=== PATIENT | female | born 1945 | race Caucasian/White ===

== ENCOUNTER → 2016-12-07 | Outpatient (CLI) | payer OTHER | LOC: KOH-I 14:50 | DX: M79.651 Pain in right thigh (principal); R22.41 Localized swelling, mass and lump, right lower limb | CPT/HCPCS: 76881 ==

== ENCOUNTER → 2017-02-20 | Outpatient (CLI) | payer OTHER | LOC: KOH-I 02-17 13:00 | DX: R51 Headache (principal); R25.1 Tremor, unspecified; Z80.8 Family history of malignant neoplasm of other organs or systems; Z82.3 Family history of stroke; Z82.49 Family history of ischemic heart disease and other diseases of the circulatory system | CPT/HCPCS: 70450 ==

== ENCOUNTER → 2021-04-26 | Outpatient (CLI) | payer MEDICARE, OTHER | LOC: KOH-I 13:29 | DX: M79.671 Pain in right foot (principal) | CPT/HCPCS: 73630 ==

== ENCOUNTER → 2021-05-31 | Outpatient (CLI) | payer MEDICARE, OTHER | LOC: KOH-I 14:53 | DX: M79.671 Pain in right foot (principal); M19.071 Primary osteoarthritis, right ankle and foot | CPT/HCPCS: 73630 ==

== ENCOUNTER → 2021-07-12 | Outpatient (CLI) | payer MEDICARE | LOC: KOH-I 15:07 | DX: M25.571 Pain in right ankle and joints of right foot (principal); M19.071 Primary osteoarthritis, right ankle and foot | CPT/HCPCS: 73630 ==

== ENCOUNTER → 2021-07-27 | Outpatient (CLI) | payer MEDICARE, OTHER | LOC: KOH-I 10:52 | DX: M84.374A Stress fracture, right foot, initial encounter for fracture (principal); M81.0 Age-related osteoporosis without current pathological fracture | CPT/HCPCS: 73718 ==

== ENCOUNTER → 2021-08-12 | Outpatient (CLI) | payer MEDICARE, OTHER | LOC: KOH-I 09:52 | DX: R06.02 Shortness of breath (principal); R07.9 Chest pain, unspecified; Z90.2 Acquired absence of lung [part of] | CPT/HCPCS: 73630 ==

== ENCOUNTER → 2022-04-18 | Outpatient (CLI) | payer MEDICARE, OTHER | LOC: KOH-I 15:13 | DX: M79.672 Pain in left foot (principal) | CPT/HCPCS: 73630 ==

== ENCOUNTER → 2022-04-27 | Outpatient (CLI) | payer MEDICARE, OTHER | LOC: KOH-I 09:50 | DX: S93.325A Dislocation of tarsometatarsal joint of left foot, initial encounter (principal); M79.672 Pain in left foot; S93.622A Sprain of tarsometatarsal ligament of left foot, initial encounter; M18.12 Unilateral primary osteoarthritis of first carpometacarpal joint, left hand | CPT/HCPCS: 73718 ==